=== PATIENT | male | born 1985 | race Caucasian/White ===

== ENCOUNTER 2024-04-30 13:00 | Outpatient (RCR) | payer OTHER, SELFPAY | END 2024-06-30 10:17 | disposition home or self-care (01) | LOC: HO.PT 13:00 | PROVIDERS: Visit Provider Internal Medicine | DX: M62.830 Muscle spasm of back (principal) | CPT/HCPCS: 97110; 97140; 97161; 97535 ==

== ENCOUNTER 2024-11-11 14:27 | Outpatient (REF) | payer OTHER, SELFPAY ==
--- NOTE | ~2024-11-11 | US_ITS ---
CLINICAL HISTORY: Neoplasm for forehead Examination: Limited soft tissue ultrasound Indication: Lump on forehead Comparison: None. Findings: There is an ovoid, wider than tall, vascular soft tissue nodule measuring 7 x 2 x 8 mm there is the suggestion of a fatty hilum and a thin cortex. Impression: Findings most likely correspond to a small lymph node. This document has been electronically signed by: Norris Shah MD on 11/13/2024 09:11:09
--- OUTSIDE RECORDS SUMMARY | 2024-11-11 18:18 | XMS_ITS | Encounter Summary ---
Author Organization [facility] Address [address] [place] [address] Care Team Providers Care Clerical Transcriber Name Role Phone Dale Parada Primary Care Provider [phone] Pcp, No Primary Care Provider Angella Page MD Primary Care Provider [phone] Encounter Details Date Type Department Care Team (Late st Contact Info) Description 11/10/2017 Scanned Document [facility] Corner [address] [place] [address] [phone] Dale Parada PA [address] [place] [address] Social History Tobacco Use Types Packs/Day Years Used Date Smoking Tobacco: Never Smokeless Tobacco: Never Sex and Gender Information Value Date Recorded Sex Assigned at Male 08/11/2024 7:02 AM EST Gender Identity Not on file Sexual Orientation Not on file documented as of this encounter Plan of Treatment Not on file documented as of this encounter Visit Diagnoses Not on filedocumented in this encounter Care Teams Clerical Transcriber Relationship Specialty Start Date End Date Dale Parada PA [address] [place] [id number] PCP - General Internal Medicine 11/07/17 04/13/24 Pcp, No PCP - General General Medicine 04/14/24 10/28/24 Angella Garcia MD [address] [place] [address] PCP - General Internal Medicine 10/29/24 documented as of this encounter
--- OUTSIDE RECORDS SUMMARY | 2024-11-11 18:18 | XMS_ITS | Clinical Summary ---
Author Organization [facility] Address [address] [place] [address] Care Team Providers Care Adjuster Electrical Contacts Name Role Phone Unavailable Primary Care Provider Unavailabl e Social History Tobacco Use Types Packs/Day Years Used Date Smoking Tobacco: Never Assessed Sex and Gender Information Value Date Recorded Sex Assigned at Male 03/08/2020 8:58 AM EDT Gender Identity Male 03/08/2020 8:58 AM EDT Sexual Orientation Not on file Plan of Treatment Health Maintenance Due Date Last Done Comments Hepatitis B Vaccines (1 of 3 - 3-dose series) 1986 Hepatitis C Screening 1986 COVID-19 Vaccine (#1) 1986 Depression Screening 1998 Preventative Health Evaluation 2004 Influenza Vaccine (#1) 2024 DTap / Tdap / Td (2 - Td or Tdap) 11/08/2027 018 Pneumococcal Vaccine Aged Out No long er eligible based on patient's age to complete this topic RSV Ped < 20 months Aged Out No longe r eligible based on patient's age to complete this topic
--- OUTSIDE RECORDS SUMMARY | 2024-11-11 18:18 | XMS_ITS | Encounter Summary ---
Author Organization [facility] Address [address] [place] [address] Care Team Providers Care Cafeteria Clerk Name Role Phone Dale Parada Primary Care Provider [phone] Pcp, Michelle Primary Care Provider Angella Page MD Primary Care Provider [phone] Encounter Details Date Type Department Care Team (Late st Contact Info) Description 01/20/2019 Scanned Document [facility] Medical Records, Scan Social History Tobacco Use Types Packs/Day Years [...] on filedocumented in this encounter Care Teams Cafeteria Clerk Relationship Specialty Start Date End Date Dale Parada PA [address] [place] [address] PCP - General Internal Medicine 11/07/17 04/13/24 Pcp, No PCP - General General Medicine 04/14/24 10/28/24 Angella Garcia MD [address] [place] [address] PCP - General Internal Medicine 10/29/24 documented as of this encounter
--- OUTSIDE RECORDS SUMMARY | 2024-11-11 18:18 | XMS_ITS | Encounter Summary ---
Author Organization [facility] Address [address] [place] [address] Care Team Providers Care Special Education Instructor Name Role Phone Angella Garcia MD Primary Care Provider [phone] Encounter Details Date Type Department Care Team (Latest Contact Info) Description 11/03/2024 Travel Social History Tobacco Use Types Packs/Day Years Used Date Smoking Tobacco: Never Smokeless Tobacco: Never Alcohol Use Standard Drinks/Week Comments Never 0 (1 standard drink = 0.6 oz pur e alcohol) [facility] Utilities Answer Date Recorded In the past 12 months has e electric, gas, oil, or water company threatened to shut off services in your home? No 08/11/2024 Social Connection and Isolation Panel [NHANES] A nswer Date Recorded In a typical week, how many times do you talk on the phone with family, friends, or neighbors? Never 08/11/2024 Frequency of Social Gatherings with Friends and Family Not on file 08/11/2024 Attends Orthodox Services Not on file 08/11 Active Member of Clubs or Organizations Not on f ile 08/11/2024 Attends Club or Organization Meetings Not on louise e 08/11/2024 Marital Status Not on file 08/11/2024 AUDIT-C Answer Date Recorded Q1: How often do you have a drink containing alc ohol? Patient declined 08/11/2024 Average Number of Drinks Not on file 024 Frequency of Binge Drinking Not on file 08/01 PHQ-2 Answer Date Recorded PHQ-2 Total Score 0 08/11/2024 Hunger Vital Sign Answer Date Recorded Within the past 12 months, y ou worried that your food would run out before you got the money to buy more. Never true 08/11/20 24 Within the past 12 months, t he food you bought just didn't last and you didn't have money to get more. Never true 08/11/2024 PRAPARE - Transportation Answer Date Re corded In the past 12 months, has l ack of transportation kept you from medical appointments or from getting medications? No 08/01 In the past 12 months, has l ack of transportation kept you from meetings, work, or from getting things needed for daily living? No 08/11/2024 Housing Stability Vital Sign Answer Antolin e Recorded In the last 12 months, was t here a time when you were not able to pay the mortgage or rent on time? No 08/11/2024 Number of Times Moved in the Last Year Not on fi le 08/11/2024 At any time in the past 12 m [facility], were you homeless or living in a correction (including now)? No 08/11/2024 Sex and Gender Information Value Date Recorded Sex Assigned at Male 08/11/2024 7:02 AM EST Gender Identity Not on file Sexual Orientation Not on file documented as of this encounter Plan of Treatment Not on file documented as of this encounter Visit Diagnoses Not on filedocumented in this encounter Care Teams Special Education Instructor Relationship Specialty Start Date End Date Angella Garcia MD [address] [place] [address] PCP - General Internal Medicine 10/29/24 documented as of this encounter
--- OUTSIDE RECORDS SUMMARY | 2024-11-11 18:18 | XMS_ITS | Encounter Summary ---
Author Organization [facility] Address [address] [place] [address] Care Team Providers Care All Round Logger Name Role Phone Angella Garcia MD Primary Care Provider [phone] Reason for Visit * Reason Comments Mass On forehead Encounter Details Date Type Department Care Team (Late st Contact Info) Description 11/03/2024 12:30 PM EST Office Visit [address] [address] Eulalio England, PAWhitneyC [address] [place] [address] [place] [address] Neoplasm of skin of forehead (Primary Dx) Social History Tobacco Use Types Packs/Day Years Used Date Smoking Tobacco: Never Smokeless Tobacco: Never Tobacco Cessation:Counseling Given: Not Answered Alcohol Use Standard Drinks/Week Comments Never 0 (1 standard drink = 0.6 oz pur e alcohol) [facility] Utilities Answer Date Recorded In the past 12 months has [employer], gas, oil, or water [employer] threatened to shut off services in your home? No 08/11/2024 Social Connection and Isolation Panel [NHANES] A nswer Date Recorded In a typical week, how many times do you talk on the phone with family, friends, or neighbors? Never 08/11/2024 Frequency of Social Gatherings with Friends and Family Not on file 08/11/2024 Attends [employer]ab[employer]ist Services Not on file 08/11 Active Member [...] any time in the past 12 m [facility], were you homeless or living in a halfway (including now)? No 08/11/2024 Sex and Gender Information Value Date Recorded Sex Assigned at Male 08/11/2024 7:02 AM EST Gender Identity Not on file Sexual Orientation Not on file documented as of this encounter Last Filed Vital Signs Vital Sign Reading Time Taken Comments Blood Pressure 120/60 11/03/2024 12:19 PM EST Pulse 78 11/03/2024 12:19 PM EST Temperature 36.4 ??C (97.5 ??F) 11/03/2024 12:[address] Respiratory Rate 16 11/03/2024 12:19 PM EST Oxygen Saturation 97% 11/03/2024 12:19 PM EST Inhaled Oxygen Concentration - - Weight 67.1 kg (148 lb) 11/03/2024 12:19 PM EST Height - - Body Mass Index 22.18 08/11/2024 11:14 AM EST documented in this encounter Plan of Treatment Scheduled Orders Name Type Priority Associated Diagnoses Orde r Schedule US Soft tissue head/neck Imaging Routine Neoplasm of skin of forehead Expected: 11/03/2024, Expires: 11/03/2025 documented as of this encounter Visit Diagnoses Diagnosis Neoplasm of skin of forehead- Primary documented in this encounter Care Teams All Round Logger Relationship Specialty Start Date End Date Angella Garcia MD [address] [place] [id number] PCP - General Internal Medicine 10/29/24 documented as of this encounter
--- OUTSIDE RECORDS SUMMARY | 2024-11-11 18:18 | XMS_ITS ---
Author Name [facility] Organization Unknown Results Test Name/Text Value Interpretation Date Range Source TSH SerPl-aCnc 3.55mIU/L Normal [id number] 0.4 - 4.5 QU EST Neutrophils # Bld Auto 3149cells/uL Normal [id number] 1500 - 7800 [facility] Lymphocytes # Bld Auto 1496cells/uL Normal [id number] 850 - 3900 [facility] Eosinophil # Bld Auto 638cells/uL Above high normal [id number] 15 - 500 [facility] Eosinophil/leuk NFr Bld Auto 11% Normal [id number] [facility] Lymphocytes/leuk NFr Bld Auto 25.8% Normal [id number] [facility] WBC # Bld Auto 5.8Thousand/uL Normal [id number] 3.8 - 1 0.8 [facility] MCH RBC Qn Auto 30pg Normal [id number] 27 - 33 Q [facility] Basophils/leuk NFr Bld Auto 0.5% Normal [id number] [facility] RBC # Bld Auto 4.34Million/uL Normal [id number] 4.2 - 5 .8 [facility] Hct VFr Bld Auto 39.1% Normal [id number] 38.5 - 50 [facility] Monocytes # Bld Auto 487cells/uL Normal [id number] 200 - 950 [facility] Neutrophils/leuk NFr Bld Auto 54.3% Normal [id number] [facility] PMV Bld Parmjit-Betzy 10.4fL Normal [id number] 7.5 - 12 .5 [facility] RDW RBC Auto-Rto 13% Normal [id number] 11 - 15 [facility] MCHC RBC Auto-mCnc 33.2g/dL Normal [id number] 32 - 36 [facility] Monocytes/leuk NFr Bld Auto 8.4% Normal [id number] [facility] MCV RBC Auto 90.1fL Normal [id number] 80 - 100 [facility] T Hgb Bld-mCnc 13g/dL Below low normal [id number] 13.2 - 17.1 [facility] Platelet # Bld Auto 269Thousand/uL Normal [id number] 14 0 - 400 [facility] Basophils # Bld Auto 29cells/uL Normal [id number] 0 - 2 00 [facility] Cholest SerPl-mCnc 232mg/dL Above high normal [id number] - 200 [facility] Cholest/HDLc SerPl 5.5(calc) Above high normal [id number] - 5 [facility] LDLc SerPl Calc-mCnc 160mg/dL(calc) Above high normal [id number] [facility] Trigl SerPl-mCnc 152mg/dL Above high normal [id number] - 150 [facility] NonHDLc SerPl-mCnc 190mg/dL(calc) Above high normal [id number] 1535 - 130 [facility] HDLc SerPl-mCnc 42mg/dL Normal [id number] - Q [facility] 25(OH)D3+25(OH)D2 SerPl-mCnc 18ng/mL Below low normal [id number] 30 - 100 [facility] BUN/Creat SerPl SEE NOTE: Normal [id number] 6 - 22 Q [facility] Prot SerPl-mCnc 7.6g/dL Normal [id number] 6.1 - 8.1 Q [facility] ALP SerPl-cCnc 61U/L Normal [id number] 36 - 130 QU EST Albumin/Glob SerPl 1.7(calc) Normal [id number] 1 - 2.5 [facility] Creat SerPl-mCnc 0.84mg/dL Normal [id number] 0.6 - 1.26 [facility] Potassium SerPl-sCnc 4.3mmol/L Normal [id number] 3.5 - 5.3 [facility] Albumin SerPl-mCnc 4.8g/dL Normal [id number] 3.6 - 5. 1 [facility] Sodium SerPl-sCnc 140mmol/L Normal [id number] 135 - 146 [facility] Globulin Ser Calc-mCnc 2.8g/dL(calc) Normal [id number] 1.9 - 3.7 [facility] Bilirub SerPl-mCnc 0.4mg/dL Normal [id number] 0.2 - 1. 2 [facility] Calcium SerPl-mCnc 9.5mg/dL Normal 8.6 - 10 .3 [facility] BUN SerPl-mCnc 19mg/dL Normal [id number] 7 - 25 QU EST Glucose SerPl-mCnc 95mg/dL Normal [id number] 65 - 99 [facility] eGFRcr SerPlBld CKD-EPI 2020 114mL/min/1.73 m2 Normal [id number] - [facility] AST SerPl-cCnc 14U/L Normal [id number] 10 - 40 QU EST CO2 SerPl-sCnc 28mmol/L Normal [id number] 20 - 32 QU EST Chloride SerPl-sCnc 101mmol/L Normal [id number] 98 - 11 0 [facility] ALT SerPl-cCnc 11U/L Normal [id number] 9 - 46 QU EST HbA1c MFr Bld 5.6%oftotalHgb Normal [id number] - 5.7 [facility] Encounters Encounter Type Encounter Reason Primary Diagnosis Location Date Ambulatory [employer] 11/03/2024 [facility] Cellulitis of le ft finger [employer] 01/30/2022 Care Team Organization Name Specialty Phone Email Start Date End Da te [employer] DALE NORRIS Primary Care 10/30/2024 [facility] PCP [employer] 08/14/2024 [employer] NO PCP Primary Care 04/15/2024 [facility] Dale Parada Primary [facility] 01/30/202201/30 [employer] DALE PARADA Primary Care 01/30/2022
--- OUTSIDE RECORDS SUMMARY | 2024-11-11 18:18 | XMS_ITS | Clinical Summary ---
Author Organization [facility] Address [address] [place] [address] Care Team Providers Care Family Medicine Chair Name Role Phone Angella Garcia MD Primary Care Provider [phone] Allergies No known active allergies Medications Medication Sig Dispensed Refills Start Date End Date Status ergocalciferol 28003 units CapIndications:Vitam in D deficiency Take 1 capsule (50,000 Units total) by mouth once a week. 12 capsule 08/17/2024 Active Active Problems No known active problems Encounters Date Type Department Care Team Description 11/03/2024 12:30 PM EST Office Visit [address] [address] Eulalio England PABrenda Neoplasm of skin of forehead (Primary Dx) 11/03/2024 Travel 08/17/2024 Orders Only [address] [address] Angella Garcia MD Vitamin D deficiency (Primary Dx) from Last 3 Months Immunizations Name Administration Dates Next Due Covid-19 MRNA Vaccine - AlleyWatch 12+ (Purple Cap) 09/08/2020,08/18/2020 Influenza, Unspecified 06/10/2019 Tdap 11/07/2017 Family History Medical History Relation Name Comments Hyperlipidemia Brother 1 No Known Problems Brother 2 Parathyroid Gland Disorder Father Hyperlipidemia Mother Parathyroid Gland Disorder Mother Thyroid disease Mother No Known Problems Sister 1 No Known Problems Sister 2 No Known Problems Sister 3 Breast cancer Neg Hx Colon cancer Neg Hx Prostate cancer Neg Hx Relation Name Status Comments Brother 1 Alive Brother 2 Alive Daughter Alive Father Alive Mother Alive Sister 1 Alive Sister 2 Alive Sister 3 Alive Son Alive Social History Tobacco Use Types Packs/Day Years Used Date Smoking Tobacco: Never Smokeless Tobacco: Never Tobacco Cessation:Counseling Given: Not Answered Alcohol Use Standard Drinks/Week Comments Never 0 (1 standard drink = 0.6 oz pur e alcohol) [facility] Utilities Answer Date Recorded In the past 12 months has th e electric, gas, oil, or water company threatened to shut off services in your home? No 08/11/2024 Social Connection and Isolation Panel [NHANES] A nswer Date Recorded In a typical week, how many times do you talk on the phone with family, friends, or neighbors? Never 08/11/2024 Frequency of Social Gatherings with Friends and Family Not on file 08/11/2024 Attends [employer] Not on file 08/11 Active Member [...] any time in the past 12 m [facility], were you homeless or living in a retirement (including now)? No 08/11/2024 Sex and Gender Information Value Date Recorded Sex Assigned at Male 08/11/2024 7:02 AM EST Gender Identity Not on file Sexual Orientation Not on file Last Filed Vital Signs Vital Sign Reading Time Taken Comments Blood Pressure 120/60 11/03/2024 12:19 PM EST Pulse 78 11/03/2024 12:19 PM EST Temperature 36.4 ??C (97.5 ??F) 11/03/2024 12:[address] Respiratory Rate 16 11/03/2024 12:19 PM EST Oxygen Saturation 97% 11/03/2024 12:19 PM EST Inhaled Oxygen Concentration - - Weight 67.1 kg (148 lb) 11/03/2024 12:19 PM EST Height 174 cm (5' 8.5 ) 08/11/2024 11:14 AM EST Body Mass Index 22.18 08/11/2024 11:14 AM EST Plan of Treatment Health Maintenance Due Date Last Done Comments Hepatitis C Virus Screening 1986 HIV Screening 1999 Hepatitis B Vaccines (1 of 3 - 19+ 3-dose series) 2005 Physical 03/01/2024 03/01/2021 Influenza Vaccine 04/01/2024 06/10/2019 COVID-19 Vaccine (3 - 2023-2 5 season) 2024 09/08/2020, 08/18/2020 DTaP/Tdap/Td Vaccines (2 - T d or Tdap) 11/08/2027 11/07/2017 HPV Vaccines Aged Out No longer eligi ble based on patient's age to complete this topic Pneumococcal Vaccine: Pediatric (0-5 Years) and At-Risk Patients (6 to 49 Years) Aged Out No longer eligible b ased on patient's age to complete this topic Care Teams Family Medicine Chair Relationship Specialty Start Date End Date Angella Garcia MD [address] [place], [place] [id number] PCP - General Internal Medicine 10/29/24
--- OUTSIDE RECORDS SUMMARY | 2024-11-11 18:18 | XMS_ITS | Patient Health Record ---
Author Organization [facility] [place], Address [address] [place] [address] Support Name Relationship Address Phone Osorio Goodrich Guarantor Unknown [phone] Reason For Referral No Information Plan Of Treatment No Information Insurance Providers Payer Name Payer Address Payer Phone Subscriber Number Group Number Insured Name Patient Relationship to Insured Coverage Start Date Coverage End Date [facility] [address] [place] [phone] [id number] Osorio Goodrich Self - patient is the insured
== END 2024-11-11 14:28 | disposition home or self-care (01) ==
LOC: HO.US 14:27
PROVIDERS: PCP Internal Medicine; Visit Provider Physician Assistant
DX: D49.2 Neoplasm of unspecified behavior of bone, soft tissue, and skin (principal)
CPT/HCPCS: 76536

== ENCOUNTER → 2024-11-11 14:36 | Outpatient (BNV) | payer OTHER, SELFPAY | PROVIDERS: PCP Internal Medicine; Visit Provider Radiology Vascular & Interventional Radiology | DX: R22.0 Localized swelling, mass and lump, head (principal) | CPT/HCPCS: 76536 ==